=== PATIENT | female | born 1945 | race Caucasian/White ===

== ENCOUNTER 2023-05-28 11:00 | Outpatient (CLI) | payer OTHER, SELFPAY ==
--- NOTE | ~2023-05-28 | XR_ITS ---
AP and lateral views of the left hip Clinical history: Pain Findings: No acute fracture or dislocation is seen. There is severe left hip joint osteoarthritis, shmuel int space narrowing, reactive sclerotic change, and subchondral cystic change. Soft tissues are unrem arkable. Impression: Severe left hip joint osteoarthritis. Reviewed, dictated and finalized at location . [employer] Impression: Severe left hip joint osteoarthritis.
== END 2023-05-28 11:01 | disposition home or self-care (01) ==
PROVIDERS: PCP Emergency Medicine; Visit Provider Emergency Medicine
DX: M16.12 Unilateral primary osteoarthritis, left hip (principal)
CPT/HCPCS: 73502